=== PATIENT | male | born 2000 | race Caucasian/White ===

== ENCOUNTER 2020-06-19 12:32 | Emergency (ER) | payer OTHER ==
[~2020-06-19] VITALS: Ht 185.4 cm; Wt 74.8 kg
[2020-06-19 12:51] VITALS: Ht 185.4 cm; Wt 74.8 kg
[2020-06-19 15:00] VITALS: BP 122/72
== END 2020-06-19 14:50 | disposition home or self-care (01) ==
LOC: ED 12:32
DX: S83.91XA Sprain of unspecified site of right knee, initial encounter (principal); V29.00XA Motorcycle driver injured in collision with unspecified motor vehicles in nontraffic accident, initial encounter; Y93.55 Activity, bike riding; Y92.413 State road as the place of occurrence of the external cause; Y99.8 Other external cause status